=== PATIENT | female | born 1990 | race Caucasian/White ===

== ENCOUNTER 2020-12-22 21:43 | Emergency (ER) | payer SELFPAY ==
[~2020-12-22] VITALS: Ht 160 cm; Wt 115.0 kg
[2020-12-22 21:45] VITALS: BP 164/96
[2020-12-22] MEDS ORDERED: CLIN150C15 PO (22:23)
--- NOTE | 2020-12-22 22:25 | ED.ADGEN ---
General Adult EDM: Chief Complaint: FACE PAIN HPI: HPI: Patient is a 30 year old female who presents to the emergency department with complaints of pain in the left upper quadrant of her mouth and to her left maxillary sinus since yesterday. She denies any fever, sore throat, ear pain, body aches, fatigue, cough, shortness of breath, nausea, vomiting, diarrhea, or rash. Patient reports a history of several broken teeth and multiple dental caries that have not been treated. She currently rates her pain at 8 out of 10 on the pain scale, she reports that the pain is worse with palpation. Review of Systems: Review of Systems: Complete ROS is negative unless otherwise noted in HPI. Physical Exam: PE: See Above Constitutional: Well developed, well nourished, no acute distress, non-toxic appearance, obese. [] HENT: Normocephalic, atraumatic, bilateral external ears normal, nose normal, oropharynx moist; diffuse dental decay with multiple broken teeth and gingival erythema to the left upper quadrant of the patient's mouth, no visible or palpable dental abscess. [] Eyes: PERRLA, EOMI, conjunctiva normal, no discharge. [] Neck: Normal range of motion, no stridor. [] Cardiovascular:Heart rate regular rhythm Lungs & Thorax: Respirations even and unlabored, no retractions, no respiratory distress Skin: Warm, dry, no erythema, no rash. [] Extremities: No cyanosis, ROM intact, no edema. [] Neurologic: Alert and oriented X 3, no focal deficits noted. [] Psychologic: Affect normal, judgement normal, mood normal. [] EKG: EKG: [] Heart Score: C/O Chest Pain: No Risk Scores: Score 0 - 3: 2.5% MACE over next 6 weeks - Discharge Home Score 4 - 6: 20.3% MACE over next 6 weeks - Admit for Clinical Observation Score 7 - 10: 72.7% MACE over next 6 weeks - Early Invasive Strategies Radiology/Procedures: Radiology/Procedures: [] Course & Med Decision Making: Course & Med Decision Making Pertinent Labs and Imaging studies reviewed. (See chart for details) [] Dragon Disclaimer: Dragon Disclaimer: This electronic medical record was generated, in whole or in part, using a voice recognition dictation system. Departure Departure Impression: Primary Impression: Infected dental caries Additional Impressions: Dentalgia Gingivitis, acute Disposition: 01 DC HOME SELF CARE/HOMELESS Condition: STABLE Referrals: NO PCP (PCP) Patient Instructions: Dental Caries, Dental Pain, [id number], Gingivitis, [id number] Additional Instructions: Fill the prescriptions use them as prescribed. You can take Tylenol or ibuprofen as needed for pain. I recommend that you use your Peridex that you have at home as previously prescribed. Follow up with dentist using the referral list provided. Return to the ER if symptoms worsen or if fever develops. Scripts Clindamycin Hcl (CLINDAMYCIN HCL) 150 Mg Capsule 450 MG PO TID for 7 Days, #63 CAP 0 Refills Prov: NAOMY HANEY APRN 12/22/20 Problem Qualifiers NAOMY HANEY APRN Dec 22, 2020 22:25
[2020-12-22] MEDS ORDERED: HYDROcodone/APAP 5/325MG 1 TAB TABLET PO ONE (22:30)
== END 2020-12-22 22:33 | disposition home or self-care (01) ==
LOC: ER 21:43
DX: K04.7 Periapical abscess without sinus (principal); K05.10 Chronic gingivitis, plaque induced
CPT/HCPCS: 99283